=== PATIENT | male | born 1955 | race Caucasian/White ===

== ENCOUNTER → 2017-09-30 | Outpatient (CLI) | payer OTHER ==
[~2017-09-30] MED LIST: ASPI1TAB57 PO; LISI10TA PO; LISI20TA PO; PRED10PA PO; SIMV10TA PO; TRAM50 PO; TRAM50TA PO; ZOCO40TA PO
--- NOTE | 2017-09-30 15:30 | EKG ---
Date Performed: 09/30/2017 Time Performed: 08:19:00 PTAGE: 62 years EKG: Sinus rhythm INFERIOR MYOCARDIAL INFARCTION, OF INDETERMINATE AGE WITH POSTERIOR EXTENSION ABNORMAL ECG NO PREVIOUS TRACING DOCTOR: Ehsan Morrison Interpretating Date/Time 09/30/2017 15:28:15
== END ==
LOC: CPRE 07:47
PROVIDERS: ATTEND Surgery
DX: Z01.810 Encounter for preprocedural cardiovascular examination (principal); M17.11 Unilateral primary osteoarthritis, right knee; R94.31 Abnormal electrocardiogram [ECG] [EKG]; Z79.01 Long term (current) use of anticoagulants
CPT/HCPCS: 93005

== ENCOUNTER → 2017-12-10 | Outpatient (CLI) | payer OTHER ==
[~2017-12-10] MED LIST changes: +ADJUSTABLE COMM1 MIS; +CPMMACHINE; -LISI10TA PO; -PRED10PA PO; -TRAM50 PO; +WALKER WHEELS/F1 MIS; -ZOCO40TA PO
[2017-12-10 08:54] LABS: HEMATOCRIT 43.2 % (39.0-51.0); HEMOGLOBIN 14.9 GM/DL (13.0-17.0); MEAN CELL VOLUME 89.9 FL (80.0-100.0); MEAN CORPUSCULAR HGB CONC 34.5 % (32.0-36.0); MEAN PLATELET VOLUME 7.5 FL (7.0-11.0); PLATELET COUNT 243 TH/MM3 (150-450); RED BLOOD COUNT 4.81 MIL/MM3 (4.50-5.90); RED CELL DISTRIBUTION WIDTH 13.7 % (11.6-17.2); WHITE BLOOD COUNT 6.5 TH/MM3 (4.0-11.0)
[2017-12-10 08:58] LABS: BILIRUBIN, URINE NEG (NEG); BLOOD, URINE SMALL (NEG); GLUCOSE,URINE NEG (NEG); KETONE, URINE NEG (NEG); MUCUS URINE FEW /lpf (OCC); NITRITE,URINE NEG (NEG); URINE COLOR YELLOW (YELLW/STRAW); URINE LEUKOCYTE ESTERASE NEG (NEG)
[2017-12-10 09:10] LABS: INTERNATIONAL NORMALIZED RATIO 1.1 RATIO; PROTHROMBIN TIME - PATIENT 10.7 SEC (9.8-11.6)
[2017-12-10 09:24] LABS: ALBUMIN 3.7 GM/DL (3.4-5.0); AST (GOT) 20 U/L (15-37); BICARBONATE 30.5 MEQ/L (21.0-32.0); BLOOD UREA NITROGEN 19 MG/DL (7-18); CALCIUM 9.3 MG/DL (8.5-10.1); CHLORIDE 101 MEQ/L (98-107); CREATININE 0.85 MG/DL (0.60-1.30); GLOMERULAR FILTRATION RATE 91 ML/MIN (>89); GLUCOSE,FASTING 89 MG/DL (74-99); SODIUM (NA) 136 MEQ/L (136-145)
[2017-12-10 09:25] LABS: ALT (GPT) 25 U/L (12-78)
[2017-12-10 09:27] LABS: ALKALINE PHOSPHATASE 83 U/L (45-117); TOTAL PROTEIN 7.7 GM/DL (6.4-8.2)
== END ==
LOC: CPRE 08:26
PROVIDERS: ATTEND Surgery
DX: Z01.812 Encounter for preprocedural laboratory examination (principal); M79.609 Pain in unspecified limb
CPT/HCPCS: 36415; 80053; 81001; 85027; 85610; 85730

== ENCOUNTER 2017-12-16 10:32 | Observation (INO) | payer OTHER ==
--- NOTE | 2017-10-01 16:14 | MH ---
cc: Rosaura OH M.D. DATE OF ADMISSION 10/08/2017 HISTORY OF THE PRESENT ILLNESS This pleasant 62-year-old male is being admitted today for right total knee arthroplasty due to severe painful arthritic degeneration. PAST MEDICAL HISTORY Other past history, other than morbid obesity, the patient has a history of: 1. Hyperlipidemia. 2. Hypertension for which he takes lisinopril / hydrochlorothiazide. MEDICATIONS He is also on: 1. Simvastatin. 2. And tramadol for pain. PAST SURGICAL HISTORY Previous surgery: Tonsillectomy. REVIEW OF SYSTEMS Noncontributory. FAMILY HISTORY Noncontributory. SOCIAL HISTORY Does not smoke. Does not drink. ALLERGIES NO KNOWN ALLERGIES. PHYSICAL EXAMINATION GENERAL: We find a 62-year-old male, well-developed, well-nourished, alert and oriented times three complaining of pain in his right knee. VITAL SIGNS: Blood pressure 122/86, pulse 89 and regular, respiratory rate 18, temperature 97.8. Pulse oximetry 96% on room air. HEENT: Eyes pupils equal, round, reactive to light and accommodation. Extraocular muscles intact. Ears, nose, mouth clear. NECK: Supple. LUNGS: Clear. HEART: Regular rate. ABDOMEN: Soft. Positive bowel sounds. Nontender. EXTREMITIES: Reveal his right knee to have crepitus on range of motion. He is neurovascularly intact to his toes. IMPRESSION At this time is severe painful osteoarthritic degeneration of the right knee. PLAN Admission for right total knee arthroplasty today. The patient given a prescription for postoperative pain and anticoagulation control in the office. He understands he is to use Hibiclens scrub and Bactroban preoperatively and plans on going home with home health care after surgical stay in the hospital. MD JACKIE Jauregui/KK /4:03 PM /4:07 PM
--- NOTE | 2017-12-11 18:26 | MH ---
cc: Rosaura OH M.D. DATE OF ADMISSION 12/16/2017 ADMITTING DIAGNOSIS Osteoarthritic degeneration right knee now being admitted for right total knee arthroplasty. HISTORY OF THE PRESENT ILLNESS This pleasant 62-year-old male is being admitted today for a right total knee arthroplasty due to severe painful osteoarthritic degeneration right knee. PAST MEDICAL HISTORY Other past history: 1. The patient has a history of morbid obesity. 2. Hyperlipidemia. 3. Essential primary hypertension. MEDICATIONS Current: 1. Aleve stopped before surgery. 2. Aspirin 81 mg a day. 3. Lisinopril. 4. Simvastatin. 5. Tramadol. PAST SURGICAL HISTORY Previous surgery include: Tonsillectomy. REVIEW OF SYSTEMS Noncontributory. FAMILY HISTORY Noncontributory. SOCIAL HISTORY He does not smoke or drink. ALLERGIES No known allergies. PHYSICAL EXAMINATION GENERAL: We find a 62-year-old male well-developed, well-nourished, alert and oriented times three complaining of pain in right knee. VITAL SIGNS: Blood pressure 112/82, pulse 89 regular, respirations 16, temperature 98.1, pulse oximetry 97% on room air. HEENT: Eyes PERRL, EOMI. Ears, nose, mouth clear. NECK: Supple. LUNGS: Clear. HEART: Regular rate. ABDOMEN: Soft. Positive bowel sounds and nontender. EXTREMITIES: Evaluation the right knee be tender with crepitance on range of motion. Neurovascularly intact to his toes. IMPRESSION Severe painful osteoarthritic degeneration right knee. PLAN Admission right total knee arthroplasty today. The patient given prescription for postoperative pain and anticoagulation control in the office and he plans on going home after surgical stay in the hospital. MD JACKIE Jauregui/KK /5:40 PM /6:04 PM
[~2017-12-16] VITALS: Ht 167.6 cm; Wt 125.3 kg
[~2017-12-16 10:32] MED LIST changes: -ADJUSTABLE COMM1 MIS; -CPMMACHINE; -WALKER WHEELS/F1 MIS
[2017-12-16] MEDS: CHLORHEXIDINE GLUCONATE 4% SOLN 120 ML BTL TOPICAL SCH ×2 (11:15→12:22)
[2017-12-16] MEDS ORDERED: METOPROLOL TARTRATE 25 MG TAB PO PRN (12:00)
[2017-12-16] MEDS ORDERED: DEXAMETHASONE SOD PHOS 4 MG/ML VIAL IV ONE (12:00)
[2017-12-16] MEDS ORDERED: TRANEXAMIC ACID IV SCH ×3 (12:00→16:00)
[2017-12-16] MEDS ORDERED: PROPOFOL 200 MG/20 ML AMP IV ONE (12:00)
[2017-12-16] MEDS ORDERED: CHLORHEXIDINE GLUCONATE 2 % 1 PACK (2 CLOTHS) TOPICAL PRN (12:00)
[2017-12-16] MEDS ORDERED: ePHEDrine/NS 25 MG/5 ML SYRINGE IV ONE (12:00)
[2017-12-16] MEDS ORDERED: POVIDONE IODINE 5% (ANTISEPSIS KIT) 4 APPLICATIONS EACH NARE PRN (12:00)
[2017-12-16] MEDS ORDERED: KETOROLAC TROMETHAMINE 30 MG/ML (IVP) VIAL IV PUSH ONE (12:00)
[2017-12-16] MEDS ORDERED: NEOSTIGMINE 5 MG/5 ML SYRINGE IV PUSH ONE (12:00)
[2017-12-16] MEDS ORDERED: PHENYLEPHRINE HCL 10 MG/ML VIAL IV ONE (12:00)
[2017-12-16] MEDS ORDERED: GLYCOPYRROLATE 1 MG/5 ML SYRINGE IV PUSH ONE (12:00)
[2017-12-16] MEDS ORDERED: LIDOCAINE HCL 1% PF 5 ML SYRINGE OTHER ONE (12:00)
[2017-12-16] MEDS ORDERED: VANCOMYCIN 1000 MG/NS 250 ML (for <70 kg) IV SCH ×2 (12:00)
[2017-12-16] MEDS ORDERED: ceFAZolin 2 GM PREMIX 50 ML IV SCH (12:00)
[2017-12-16] MEDS ORDERED: SODIUM CHLORIDE 0.9% IV SCH ×3 (12:00→16:00)
[2017-12-16] MEDS ORDERED: ONDANSETRON HCL 4 MG/2 ML VIAL IV ONE (12:00)
[2017-12-16] MEDS ORDERED: LACTATED RINGER'S 1000 ML IV PRN (12:00)
[2017-12-16] MEDS ORDERED: SODIUM CHLORID 0.9% 500 ML IV PRN (12:00)
[2017-12-16] MEDS ORDERED: LACTATED RINGER'S 1000 ML INJ 1,000 ML IV ONE (12:00)
[2017-12-16] MEDS ORDERED: ROCURONIUM INJ 50 MG/5 ML SYRINGE IV PUSH ONE (12:00)
[2017-12-16] MEDS ORDERED: PHENYLEPH/NS 1000 MCG/10 ML SYR IV ONE (12:00)
[2017-12-16] MEDS ORDERED: DEXAMETHASONE SOD PHOS 20 MG/5 ML VIAL ONE (12:13)
[2017-12-16] MEDS ORDERED: LIDOCAINE HCL 1% PF 5 ML AMPULE ONE (12:26)
[2017-12-16] MEDS ORDERED: BUPIVACAINE LIPOSOME PF 1.3% 20 ML VIAL ONE (12:26)
[2017-12-16] MEDS ORDERED: ceFAZolin INJ 1,000 MG VIAL ONE ×2 (12:34→13:31)
[2017-12-16] MEDS: MIDAZOLAM HCL 2 MG/2 ML VIAL ONE ×4 (12:35→12:46)
[2017-12-16] MEDS ORDERED: ROPIVACAINE 0.5% PF INJ 30 ML VIAL ONE (12:58)
[2017-12-16] MEDS ORDERED: EXPAREL PERI-ARTICULAR INJECTION (TOTAL VOL. 120 ML) P-ARTICULR SCH ×2 (13:00)
--- NOTE | 2017-12-16 13:21 | HHI.FF ---
Face to Face Verification Diagnosis: (1) Status post total right knee replacement Physical Therapy Gait training Knee: Total knee, Protocol: Right, Gait training, Full weight bearing Canvas Knee Splint: When in bed & 2 pillows btw thighs Nursing RN: 3 days/week x 2 weeks Nursing: Dressing changes Dressing Changes: Daily dressing change, 4x4s, Gauze, Paper tape I have seen patient Tyler Olivo on 12/16/17. My clinical findings support the need for the requested home health care services because: Limited ability to care for self High risk of falls I certify that my clinical findings support that this patient is homebound because: Unsteady gait/balance Rosaura Green MD Dec 16, 2017 13:21
[2017-12-16] MEDS ORDERED: CPMMACHINE (13:23)
[2017-12-16] MEDS ORDERED: ADJUSTABLE COMM1 MIS (13:23)
[2017-12-16] MEDS ORDERED: ACETAMINOPHEN 1000 MG/100 ML 100 ML IV ONE (13:24)
[2017-12-16] MEDS ORDERED: fentaNYL CITRATE 250 MCG/5 ML AMP ONE (13:24)
[2017-12-16] MEDS ORDERED: MORPHINE SULFATE 4 MG/ML INJ IV PUSH PRN (13:30)
[2017-12-16] MEDS ORDERED: TEMAZEPAM 15 MG CAP PO PRN (13:30)
[2017-12-16] MEDS ORDERED: ACETAMINOPHEN 325 MG TAB PO PRN (13:30)
[2017-12-16] MEDS ORDERED: diphenhydrAMINE HCL 50 MG/ML VIAL IV PUSH PRN (13:30)
[2017-12-16] MEDS ORDERED: Post-op Orders (for Pharmacy) XX ONE (13:30)
[2017-12-16] MEDS ORDERED: ONDANSETRON HCL 4 MG/2 ML VIAL IVP PRN (13:30)
[2017-12-16] MEDS ORDERED: NALOXONE HCL 0.4 MG/ML AMP IV PUSH PRN (13:30)
[2017-12-16] MEDS ORDERED: ACETAMINOPHEN/HYDROcodone 325 MG/7.5 MG TAB PO PRN ×2 (13:30)
[2017-12-16] MEDS ORDERED: WALKER WHEELS/F1 MIS (13:30)
--- NOTE | 2017-12-16 17:02 | HHI.PR ---
Immediate Post Op Note Procedure Date: Dec 16, 2017 Pre Op Diagnosis: severe painful osteoarthritic degeneration right knee. Post Op Diagnosis: severe painful osteoarthritic degeneration right knee. Surgeon: Everett Green MD Bus Monitor(s): Ruth JOHNSON Procedure: Right Total Knee Arthroplasty Specimen(s) removed: none Estimated blood loss: 150 cc Anesthesia: General Drains: None IVF Urinary Output (mLs): 0 (No cowan) Tourniquet time (min at mmHg) 63 mins at 300mmHg Patient to: PACU Patient Condition: Good Implant/Devices: SEE IMPLANT LOG (if applicable) Date/Time of Procedure: SEE SURGICAL CARE RECORD Ruth Hernandez Dec 16, 2017 17:02
[2017-12-16] MEDS ORDERED: *morphine SULFATE 10 MG/ML PERIprocedure ONLY ONE ×2 (17:05→17:34)
[2017-12-16] MEDS ORDERED: DO NOT ADM ANY ANTICOAGULANT DRUGS PRN (17:30)
--- NOTE | 2017-12-16 17:52 | RADRPT ---
EXAM DATE/TIME: 12/16/2017 17:20 [facility] COMPARISON: No previous studies available for comparison. INDICATIONS : Right knee prosthesis. MEDICAL HISTORY : None. SURGICAL HISTORY : None. ENCOUNTER: Initial ACUITY: 1 day PAIN SCORE: 9/10 LOCATION: Right knee FINDINGS: AP and lateral views of the knee following arthroplasty reveals a prosthesis in anatomic alignment. F racture is not appreciated. Surgical drain is evident CONCLUSION: Status post total knee arthroplasty. Mehrdad Kim MD FACR on December 16, 2017 at 17:50 Board Certified Radiologist. This report was verified electronically.
[2017-12-16] MEDS: LACTATED RINGER'S 1000 ML INJ 1,000 ML IV SCH (18:00)
[2017-12-16 20:25] VITALS: BP 112/69; PULSE 107; RESP 18; TEMP 96.6; O2SAT 93
[2017-12-17 00:20] VITALS: BP 105/62; PULSE 97; RESP 18; TEMP 96.7; O2SAT 94
[2017-12-17 05:35] VITALS: BP 125/61; PULSE 100; RESP 18; TEMP 98.2; O2SAT 96
[2017-12-17 07:52] LABS: HEMATOCRIT 38.8 % (39.0-51.0); HEMOGLOBIN 13.2 GM/DL (13.0-17.0)
[2017-12-17 08:00] VITALS: BP 127/75; PULSE 74; RESP 18; TEMP 97.2; O2SAT 97
[2017-12-17 08:14] VITALS: O2SAT 98
[2017-12-17] MEDS ORDERED: PRAVASTATIN SOD 20 MG TAB PO SCH (09:00)
[2017-12-17] MEDS ORDERED: HYDROCHLOROTHIAZIDE 25 MG TAB PO SCH (09:00)
[2017-12-17] MEDS ORDERED: NON-FORMULARY DRUG (Lisinopril-Hctz 1 TAB) PO SCH (09:00)
[2017-12-17] MEDS ORDERED: LISINOPRIL 20 MG TAB PO SCH (09:00)
--- NOTE | 2017-12-17 11:09 | PD.ORT.PN ---
Subjective Subjective Remarks Pt comfortable without complaints. Objective Vitals Vital Signs Date Time Temp Pulse Resp B/P (MAP) Pulse Ox O2 Delivery O2 Flow Rate FiO2 12/17/17 08:14 98 21 12/17/17 08:00 97.2 74 18 127/75 (92) 97 12/17/17 05:35 98.2 100 18 125/61 (82) 96 12/17/17 00:20 96.7 97 18 105/62 (76) 94 12/16/17 20:25 96.6 107 18 112/69 (83) 93 12/16/17 20:07 Room Air 12/16/17 18:45 Room Air 12/16/17 18:00 98.5 92 16 110/60 (77) 95 Nasal Cannula 2 12/16/17 17:45 96 16 112/59 (76) 94 Nasal Cannula 2 12/16/17 17:39 15 12/16/17 17:30 98 15 108/64 (79) 100 Nasal Cannula 3 12/16/17 17:15 99 15 107/58 (74) 99 Nasal Cannula 3 12/16/17 17:10 15 12/16/17 17:00 100 15 102/55 (71) 98 Nasal Cannula 3 12/16/17 16:55 97.7 101 16 99/44 (62) 100 Nasal Cannula 4 12/16/17 13:37 Nasal Cannula 2 12/16/17 13:36 77 20 121/56 (77) 99 12/16/17 11:21 98.4 79 20 120/72 (88) 98 I/O 12/16/17 12/16/17 12/16/17 12/17/17 12/17/17 12/17/17 07:00 15:00 23:00 07:00 15:00 23:00 Intake Total 2092.53 ml 960 ml Output Total 300 ml 450 ml 550 ml Balance -300 ml 1642.53 ml 410 ml Intake Oral 480 ml 960 ml IV Total 112.53 ml Other 1500 ml Output Urine Total 300 ml 250 ml 550 ml Estimated Blood Loss 200 ml # Voids 0 1 # Bowel Movements 0 1 Result Diagram: 12/17/17 0359 Imaging Last 24 hours Impressions Knee X-Ray 12/16/17 8196 Signed Impressions: Service Date/Time: Saturday, December 16, 2017 17:20 - CONCLUSION: Status post total knee arthroplasty. Mehrdad Kim MD FACR Objective Remarks Sitting up. Dressing dry and intact. NV intact to toes. No calf tenderness. Assessment & Plan Ortho Post Op Day #: 1 Problem List: Assessment and Plan Home today with HHC and PT. Rosaura Green MD Dec 17, 2017 11:09
--- NOTE | 2017-12-17 11:12 | HHI.DS ---
Discharge Summary Admission Date Dec 16, 2017 at 17:11 Discharge Date: Dec 17, 2017 Admitting Diagnosis osteoarthritic degeneration right knee Diagnosis: (1) Status post total right knee replacement Diagnosis: Principal ICD Codes: Z96.651 - Presence of right artificial knee joint Brief History This is a 62 year old male patient CBC/BMP: 12/17/17 0359 Significant Findings Laboratory Tests Test 12/17/17 03:59 Hematocrit 38.8 % (39.0-51.0) PE at Discharge Sitting up. Dressing dry and intact. NV intact to toes. No calf tenderness. Hospital Course Pt underwent a right total knee arthroplasty on day of admission. He received a course of prophylactic IV antibiotics and within 23 hours started on anticoagulation therapy. He continued to improve tolerating PO pain meds, fluid and food well. Began OOB with PT and wound care and was discharged to home with HHC on POD #1 in good condtion with HHC and PT and followup appt in office. Pt Condition on Discharge: Good Discharge Disposition: Disch w/ Home Health Serv Discharge Instructions Diet Instructions: As Tolerated, No Restrictions Activities You Can Perform: Full Weight Bearing, Shower Only-No Bath Activities to Avoid: Bathing, Driving Rosaura Green MD Dec 17, 2017 11:12
[2017-12-17] MEDS: LACTATED RINGER'S 1000 ML INJ 1,000 ML IV SCH (11:39)
--- NOTE | 2017-12-17 11:42 | MP ---
cc: Rosaura GREEN M.D. DATE OF SURGERY 12/16/2017 PREOPERATIVE DIAGNOSIS Osteoarthritic degeneration right knee. POSTOPERATIVE DIAGNOSIS Osteoarthritic degeneration right knee. SURGERY PERFORMED Right total knee arthroplasty using Consensus components, size 4 femur, 4 tibia, size 16-mm PCL substitute insert, size 2 patella with three batches of DePuy cement. SURGEON Dr. Green ENGINEERING VICE PRESIDENT Lupe Hernandez, ALEX PROCEDURE After successful induction of anesthesia, the patient is placed on the operating room table in the supine position. The knee is prepped and draped in the usual manner. A tourniquet is inflated at the upper thigh and set to 300 mmHg pressure after exsanguination of the lower extremity. A longitudinal incision is made extending from 3 inches proximal to the superior pole of the patella, across the patella in longitudinal fashion, and down past the insertion of the tibial tubercle into the proximal tibia. The incision is carried down through subcutaneous tissue along the medial aspect of the patella and retinaculum, down through the capsule to expose the knee joint. The patella and patellar tendon are freed up enough to allow the patella to be inverted and retracted off the lateral side of the knee joint. The knee joint is left exposed. Small osteophytes are removed. All soft tissue is removed to allow proper position of the femoral and tibial cutting jig guide. The first femoral jig is then inserted along the distal end of the femur after first measuring to decide whether this is a small, medium, or large component. The notch is then drilled and the tibial cutting guide inserted into the femoral cutting guide, along with the ankle brace to allow for proper measurement of the tibial cutting surface that needed to be resected. Pins are inserted into the tibial cutting jig and femoral cutting jig to hold them in place. An oscillating saw is then used to resect the surface of the tibia. The surface of the tibia is then completely removed using sharp and blunt dissection. The anterior and posterior cuts of the femur are then made as well using an oscillating saw through the cutting guide. All guides are then removed and the varus/valgus angulation cutting guide applied to the femur for proper measurement of the proper amount of valgus. The anterior cutting guide for the femur is then inserted at the anterior femoral cuts made. Next, the first block trial is inserted into the femur to allow for proper condyle drill holes to be made which are then made followed by removal of the bone between the condyles using an oscillating saw as well as the bone removed at the most posterior surface of the condyle. After this, this guide is removed and the chamfer cuts made using the chamfer cutting guide from both anterior and posterior. Next, the femoral trial is then inserted, the tibial surface reflected anterior to expose the tibial surface and a tibial stem guide is inserted after first measuring for a standard, standard plus, large, or large plus surface to be used. After the stem is impacted the trial tibial surface is applied followed by the trial meniscal components. After full range of motion is found with the appropriate length meniscal components varying the patella is prepared by resecting the posterior aspect of the patella using an oscillating saw, inserting a trial. The trial is then removed and the cruciate cutting guide applied using the bur to cut the cruciate cuts. After cruciate cuts are made all trials are removed. The wound is irrigated copiously with antibiotic solution and Water Pik and the actual components inserted into place using Consensus components, size 4 femur, 4 tibia, size 16-mm PCL substitute insert, size 2 patella with three batches of xkotouy cement using the [place] protocol with the pre-made guides. After the cement has hardened and the components are found to have full range of motion with no instability, the tourniquet is deflated, total tourniquet time being 64 minutes at 300 mmHg pressure. 120 cc of Exparel was used around the knee joint for extra pain control. The PCL was found to be nonexistent, therefore the PCL substituting insert was selected for better stability. The wound again is irrigated copiously with antibiotic solution, meticulous hemostasis achieved. The deep fascia was approximated with running #2 Quill, the subcutaneous tissue approximated using interrupted 2-0 and 3-0 Monocryl sutures, Steri-Strips, sterile dressing and knee immobilizer. No drain utilized. ESTIMATED BLOOD LOSS 200 cc. COUNTS Sponge and suture counts were correct. The patient tolerated the procedure well and left the operating room in satisfactory condition. Lupe JOHNSON was present during the entire procedure to include patient positioning and the procedure. The medical necessity of a nurse practitioner first aid nurse was indicated in this case due to the surgical complexity of the case itself. During the surgical case the truck engine technician was working the back table while my golf course assistant ALEX was directly assisting me. J. Angel Green MD JRAnaly/SSB /4:21 PM /11:06 AM
[2017-12-17 12:00] VITALS: BP 105/75; PULSE 107; RESP 18; TEMP 97.8; O2SAT 96
[2017-12-17] MEDS ORDERED: APIXABAN 2.5 MG TABLET PO SCH (14:00)
[2017-12-17] MEDS ORDERED: MULTIVITAMINS/MINERALS THERAPEUTIC TAB PO SCH (21:00)
[2017-12-17] MEDS ORDERED: DOCUSATE SODIUM 100 MG CAP PO SCH (21:00)
[2017-12-18] MEDS ORDERED: BACITRACIN OINT 0.9 GM PKT TOP PRN (10:15)
== END 2017-12-17 15:09 | disposition home or self-care (01) ==
LOC: HSDC 10:32 → EDSTATUS 14:00 → HSDI 17:11 → N06A 18:21
PROVIDERS: ADMIT Surgery; ATTEND Surgery
DX: M17.11 Unilateral primary osteoarthritis, right knee (principal); I10 Essential (primary) hypertension; M79.604 Pain in right leg; E78.5 Hyperlipidemia, unspecified; E66.01 Morbid (severe) obesity due to excess calories; Z79.899 Other long term (current) drug therapy; Z79.82 Long term (current) use of aspirin
CPT/HCPCS: 01400; 27447; 64450; 73560; 85014; 85018; 86850; 86900; 86901; 94150; 97110; 97116; 97150; 97163; C1776; C9290; G0378; G8987; G8988; J0131; J0690; J1100; J1885; J2250; J2270; J2370; J2405; J2710; J3010; J3370; J7050; J7120; L1830; J2795